=== PATIENT | female | born 1955 | race African-American/Black ===

== ENCOUNTER 2019-11-05 09:12 | Outpatient (CLI) | payer OTHER, SELFPAY ==
[2019-11-05 10:19] LABS: Basophils Percent Auto 0.5 % (0.2-1.2); Eosinophils Absolute Auto 0.2 K/mm3 (0-0.3); Eosinophils Percent Auto 3.7 % (0-4.4); Hemoglobin 11.7 g/dL (12.0-15.0); Immature Granulocyte Absolute 0.01 K/mm3 (0.00-0.031); Immature Granulocyte Percent A 0.2 % (0-0.5); Lymphocytes Absolute Auto 1.65 K/mm3 (0.9-3.2); Lymphocytes Percent Auto 40.5 % (18.3-44.2); Mean Corpuscular HGB Conc 30.8 g/dl (32-36); Mean Corpuscular Hemoglobin 24.5 pg (26-34); Mean Corpuscular Volume 79.7 fl (80-100); Mean Platelet Volume 10.9 fl (7.4-10.4); Monocytes Absolute Auto 0.2 K/mm3 (0.1-0.6); Monocytes Percent Auto 5.7 % (2.6-8.5); Neutrophils Percent Auto 49.4 % (45.5-73.1); Platelet Count Result 227 k/mm3 (150-375); Red Blood Count 4.77 M/mm3 (4.2-5.4); Red Cell Distribution Width 15.1 % (11.5-14.5); White Blood Count 4.1 K/mm3 (4.5-10.0)
[2019-11-05 10:35] LABS: Alanine Aminotransferase 17 U/L (4-35); Albumin Level 3.7 g/dL (3.5-5.1); Alkaline Phosphatase 79 U/L (38-126); Aspartate Amino Transferase 25 U/L (14-36); Bilirubin,Total 0.3 mg/dL (0.2-1.3); Blood Urea Nitrogen 15 mg/dL (7-17); Calcium 8.9 mg/dL (8.4-10.2); Carbon Dioxide 27 mmol/L (22-30); Chloride 103 mmol/L (98-107); Cholesterol 163 mg/dL (0-200); Estimated Glomerular Filt Rate > 60; Glucose 94 mg/dL (65-105); HDL Direct 39 mg/dL; Potassium 3.4 mmol/L (3.4-5.0); Sodium 141 mmol/L (137-145); Triglycerides 54 mg/dL (<150)
[2019-11-05 10:46] LABS: LDL Cholesterol Direct 99 mg/dL
[2019-11-05 10:52] LABS: Microalbumin Urine Random 10.8 mg/L (0-16.7)
[2019-11-05 10:54] LABS: Creatinine Urine 101.5 mg/dL; MALB Creatinine Ratio 10.6 mg/g (0-30)
[2019-11-05 11:10] LABS: Vitamin D 25 Hydroxy 25.2 ng/mL
== END 2019-11-05 09:13 | disposition home or self-care (01) ==
PROVIDERS: PCP Internal Medicine; Visit Provider Internal Medicine
DX: E55.9 Vitamin D deficiency, unspecified (principal); Z76.89 Persons encountering health services in other specified circumstances; Z13.6 Encounter for screening for cardiovascular disorders
CPT/HCPCS: 36415; 80053; 80061; 82043; 82306; 85025

== ENCOUNTER 2019-11-16 13:06 | Outpatient (CLI) | payer OTHER, SELFPAY ==
--- NOTE | ~2019-11-16 | MM_ITS ---
EXAMINATION: MM screening yarely BI w elan HISTORY: Screening mammogram TECHNIQUE: Craniocaudal and mediolateral oblique 3-D tomosynthesis images were obtained and synthetic 2-D images were generated. CAD analysis was submitted and interpreted. COMPARISON: No prior mammogram is available for comparison at this institution. BREAST PARENCHYMAL COMPOSITION: There are scattered areas of fibroglandular density. FINDINGS: 9 mm circumscribed opacity near the lateral subareolar area of the right breast (MLO Tomosy nthesis image , cc Tomosynthesis image ) diagnostic right mammogram and right breast ultras ound examination are recommended. Otherwise no suspicious mass, architectural distortion, malignant calcification, skin thickening or r etraction of either breast is evident.. IMPRESSION: 1. 9 mm lateral subareolar right breast circumscribed opacity 2. Diagnostic right mammogram and right breast ultrasound examination are recommended. Reviewed, dictated and finalized at location A. [employer] IMPRESSION: 1. 9 mm lateral subareolar right breast circumscribed opacity 2. Diagnostic right mammogram and right breast ultrasound examination are recom mended.
--- NOTE | ~2019-11-16 | DEXA_ITS ---
Bone Density Report Name: Leelee Hidalgo Age: 64 Sex: Female Ethnicity: Black Date of : 1955 Indication: postmenopausal; Referring Provider: EN BETTENCOURT Study: Bone densitometry was performed. Exam Date: November 16, 2019 Accession number: [id number] Bone Density: Region BMD T-score Z-score Classification AP Spine (L1, L2, L3) 0.891 -1.2 -0.1 Osteopenia Femoral Neck (Left) 0.681 -1.5 -0.6 Osteopenia Total Hip (Left) 0.883 -0.5 0.1 Normal Total Hip Bilateral Avg 0.875 -0.6 0.1 Normal Femoral Neck (Right) 0.662 -1.7 -0.7 Osteopenia Total Hip (Right) 0.865 -0.6 0.0 Normal World Health Organization criteria for BMD impression classify patients as: Normal (T-score at or above -1.0), Osteopenia (T-score between -1.0 and -2.5), or Osteoporosis (T-score at or below -2.5). 10-year Fracture Risk(1): Major Osteoporotic Fracture 3.9% Hip Fracture 0.5% Reported Risk Factors: [place] (Black), Neck BMD=0.662, BMI=35.3 (1) FRAX(R) Version 3.08. Fracture probability calculated for an untreated patient. Fracture probability may be lower if the patient has received treatment. Clinical Information Provided by Patient: Patient maximum height was 61 Menopause Age: 44 No regular weight bearing exercise Onset of menses at age 12 Number of children 5 Impression: The patient has low bone mass, based on the Right Femoral Neck T-score. The patient has an estimated ten-year risk of hip fracture of 0.5% and an estimated ten-year risk of major fracture of 3.9%, based on the WHO FRAX algorithm. Discussion: BONE DENSITY IS LOW AT ONE OR MORE SKELETAL SITES. This patient's lowest T-score is low at one or more skeletal sites. It meets the World Health Organization's (WHO) criteria for ?low bone mass? (T-score between -1.0 and -2.5). The patient's 10-year risk of fracture as calculated by FRAX is less than the threshold where pharmacological therapy is recommended by the National Osteoporosis Foundation (NOF). However, all treatment decisions require clinical judgment and consideration of individual patient factors, including patient preferences, comorbidities, previous drug use, risk factors not captured in the FRAX model (e.g., frailty, falls, vitamin D deficiency, increased bone turnover, interval significant decline in bone density) and possible under or overestimation of fracture risk by FRAX. The patient should follow a healthful lifestyle (good nutrition with adequate calcium and vitamin D, and appropriate weight-bearing exercise). Follow-Up: Consider repeating this study in 2 to 3 years to reassess this patient's status, or sooner if there is some new clinical indication. Reported by: AMINA on 11/16/2019 1:36:00 PM. Reviewed, dictated and finalized at location A.
== END 2019-11-16 13:07 | disposition home or self-care (01) ==
LOC: ANHIMG 13:07
PROVIDERS: PCP Internal Medicine; Visit Provider Internal Medicine
DX: Z12.31 Encounter for screening mammogram for malignant neoplasm of breast (principal); Z78.0 Asymptomatic menopausal state; R92.8 Other abnormal and inconclusive findings on diagnostic imaging of breast; M85.88 Other specified disorders of bone density and structure, other site; M85.852 Other specified disorders of bone density and structure, left thigh; M85.851 Other specified disorders of bone density and structure, right thigh
CPT/HCPCS: 77063; 77067; 77080

== ENCOUNTER 2019-12-15 11:10 | Outpatient (CLI) | payer OTHER, SELFPAY ==
--- NOTE | ~2019-12-15 | MMUS_ITS ---
EXAMINATION: MM diagnostic mammo unilat RT, US breast RT limited HISTORY: Subareolar right breast mass on screening mammogram TECHNIQUE: Additional 3-D tomosynthesis images of the right breast were performed and synthetic 2-D i mages were generated. CAD analysis was submitted and interpreted. High resolution limited right breas t ultrasound was performed. COMPARISON: 11/16/2019 FINDINGS: MAMMOGRAPHIC FINDINGS: There is an approximately 2.4 x 0.7 cm oval, low density, circumscribed mass in the subareolar aspect of the slightly outer breast at the 9:00 location. No associated architectural distortion or suspici ous calcification are identified. ULTRASOUND: There is a 2.4 x 0.4 cm oval, circumscribed, parallel, anechoic mass in the subareolar aspect of the slightly outer right breast at the 9:00 location with posterior enhancement and no internal vasculari ty. No suspicious mass is identified. IMPRESSION: 1. Likely dilated ducts or small simple fluid collection of the subareolar aspect of the right breast . 2. Recommend 6 month follow-up right diagnostic mammogram and possible ultrasound. BI-RADS category 3, probably benign findings. Reviewed, dictated and finalized at location A. IMPRESSION: 1. Likely dilated ducts or small simple fluid collection of the subareolar aspe ct of the right breast. 2. Recommend 6 month follow-up right diagnostic mammogram and possible ultrasou nd. BI-RADS category 3, probably benign findings.
== END 2019-12-15 11:11 | disposition home or self-care (01) ==
PROVIDERS: PCP Internal Medicine; Visit Provider Internal Medicine
DX: N63.0 Unspecified lump in unspecified breast (principal); R92.8 Other abnormal and inconclusive findings on diagnostic imaging of breast
CPT/HCPCS: 76642; 77065

== ENCOUNTER 2020-03-19 12:43 | Emergency (ER) | payer OTHER, SELFPAY ==
[2020-03-19 12:53] VITALS: BP 127/91; PULSE 67; RESP 18; TEMP 36.6; O2SAT 100
--- NOTE | 2020-03-19 13:56 | ED.EAR ---
HPI - Ear Problem General Chief complaint: Ear Stated complaint: Ear pain Time Seen by Provider: 03/19/20 13:31 Source: patient and RN notes reviewed Mode of arrival: ambulatory Limitations: no limitations History of Present Illness HPI Narrative: Patient presents today complaining of left ear clogging with decreased hearing x1 month. Reports some mild pain. Denies drainage. Reports the right ear is started to become clogged recently as well. She has tried no medication for symptoms prior to arrival. MD Complaint: decreased hearing Related Data Home Medications Medication Instructions Recorded Confirmed No Home Medications 03/19/20 03/19/20 Allergies Allergy/AdvReac Type Severity Reaction Status Date / Time No Known Allergies Allergy Mild Verified 03/19/20 12:47 Review of Systems Review of Systems: Narrative: CONSTITUTIONAL: Denies body aches, fever, chills, or sweats. EYES: Denies visual changes, redness, or discharge. ENT: Denies rhinorrhea, congestion, sore throat.+ Left ear pain and decreased hearing. CARDIOVASCULAR: Denies chest pain, palpitations, or edema. RESPIRATORY: Denies cough or dyspnea. GASTROINTESTINAL: Denies abdominal pain, nausea, vomiting, or diarrhea. GENITOURINARY: Denies dysuria or hematuria. SKIN: Denies rash, itching, or wounds. MUSCULOSKELETAL: Denies back pain, joint pain, or myalgia. NEUROLOGIC: Denies headache, numbness, tingling, or weakness. PSYCH: Denies depression or anxiety. [facility] Family History Family History (Updated 10/31/19 @ 11:06 by Maria E Stacy [facility]) Mother Drowning Father Cerebrovascular accident Social History Social History (Updated 10/31/19 @ 11:06 by Maria E Stacy [facility]) Smoking status: Never smoker Alcohol intake: never Gender identity (if verbalized by the patient): Female Comments At time of signature, I have reviewed and agree with nursing past medical, surgical, social and family history unless otherwise noted. Please see nursing chart for further information. There is no relevant family history pertinent to the presenting complaint Exam Narrative: Exam Narrative: GENERAL: Well-appearing, well-nourished, and in no acute distress. HEAD: Normocephalic, atraumatic. EYES: EOMI. No redness or drainage. Conjunctivae normal. ENT: Mucous membranes pink and moist. Nares clear. No rhinorrhea. Bilateral cerumen impactions. Please see procedure note. Throat normal. Uvula midline. NECK: Normal AROM. CHEST: No respiratory distress. EXTREMITIES: Normal range of motion. No edema. SKIN: Warm, dry, no rash. Capillary refill normal. Normal skin turgor. NEURO: No focal deficits. Alert and oriented x3. Gait steady. PSYCH: Normal affect. No signs of depression or anxiety. Course Vital Signs Vital signs: Vital Signs Temperature 97.9 F 03/19/20 12:53 Pulse Rate 67 03/19/20 12:53 Respiratory Rate 18 03/19/20 12:53 Blood Pressure 127/91 H 03/19/20 12:53 Pulse Oximetry 100 03/19/20 12:53 Temperature 97.9 F 03/19/20 12:53 Pulse Rate 67 03/19/20 12:53 Respiratory Rate 18 03/19/20 12:53 Blood Pressure 127/91 H 03/19/20 12:53 Pulse Oximetry 100 03/19/20 12:53 Reviewed. Pt has been instructed to follow up with her PCP regarding her elevated blood pressure today. Procedures Ear Wax Removal Both Ears: Ear Wax Removal Date: 03/19/20 Ear Wax Removal Time: 13:30 Cerumenolytic Used: other (Hydrogen peroxide) Results: Re-examined: some cerumen remains TM Examination: TM(s) intact, normal appearance Ear Canal Exam: atraumatic Patient Tolerated Procedure: well Complications: no problems Technique: ear canal irrigated and ear canal curetted Additional Comments: TMs bilaterally are normal. Medical Decision Making Differential Diagnosis Differential Diagnosis: Otitis media, otitis externa, ruptured TM, serous otitis, eustachian tu
== END 2020-03-19 14:02 | disposition home or self-care (01) ==
PROVIDERS: Emergency Provider Nurse Practitioner; PCP Internal Medicine
DX: H61.23 Impacted cerumen, bilateral (principal)
CPT/HCPCS: 69210; 99212; A9270; G0463

== ENCOUNTER 2020-05-24 10:15 | Outpatient (CLI) | payer OTHER, SELFPAY ==
[2020-05-24 10:53] LABS: Basophils Percent Auto 0.4 % (0.2-1.2); Eosinophils Absolute Auto 0.1 K/mm3 (0-0.3); Eosinophils Percent Auto 2.6 % (0-4.4); Hematocrit 37.6 % (37.0-47.0); Immature Granulocyte Absolute 0.01 K/mm3 (0.00-0.031); Immature Granulocyte Percent A 0.2 % (0-0.5); Lymphocytes Percent Auto 28.7 % (18.3-44.2); Mean Corpuscular HGB Conc 31.9 g/dl (32-36); Mean Corpuscular Hemoglobin 25.1 pg (26-34); Mean Corpuscular Volume 78.7 fl (80-100); Mean Platelet Volume 10.3 fl (7.4-10.4); Monocytes Absolute Auto 0.3 K/mm3 (0.1-0.6); Monocytes Percent Auto 6.8 % (2.6-8.5); Neutrophils Absolute Auto 2.8 K/mm3 (1.3-6.7); Neutrophils Percent Auto 61.3 % (45.5-73.1); Platelet Count Result 212 k/mm3 (150-375); Red Blood Count 4.78 M/mm3 (4.2-5.4); White Blood Count 4.5 K/mm3 (4.5-10.0)
[2020-05-24 11:54] LABS: Iron 95 ug/dL (37-170)
[2020-05-24 12:35] LABS: Percent Iron Saturation 32 % (20-50); Vitamin D 25 Hydroxy 30.4 ng/mL
== END 2020-05-24 10:16 | disposition home or self-care (01) ==
PROVIDERS: PCP Internal Medicine; Visit Provider Internal Medicine
DX: D50.9 Iron deficiency anemia, unspecified (principal); E55.9 Vitamin D deficiency, unspecified
CPT/HCPCS: 36415; 82306; 82728; 83540; 83550; 85025

== ENCOUNTER 2020-08-24 09:09 | Emergency (ER) | payer OTHER, SELFPAY ==
[2020-08-24 09:21] VITALS: BP 113/65; PULSE 81; RESP 16; TEMP 37.5; O2SAT 97
--- NOTE | 2020-08-24 09:43 | ED.FEMALEGU ---
HPI - Female Genitourinary General Chief complaint: Urogenital-Female Stated complaint: Weakness, Abdominal Pain Time Seen by Provider: 08/24/20 09:25 Source: patient and RN notes reviewed Mode of arrival: ambulatory Limitations: no limitations History of Present Illness HPI Narrative: Patient presents today complaining of a 3-day history of urinary frequency with weakness and epigastric pain that started yesterday. She also reports some sweats and chills last night. She took some Tylenol last night, which did provide some relief. Denies dysuria, hematuria, back or flank pain, nausea, vomiting, diarrhea, or known fever. Denies any recent antibiotic use. No blood or mucus in the stool. Normal bowel movement yesterday. Patient states she occasionally has heartburn for which she takes Tums, but has not tried any Tums for this current epigastric complaint. Related Data Allergies Allergy/AdvReac Type Severity Reaction Status Date / Time No Known Allergies Allergy Mild Verified 08/24/20 09:34 Review of Systems Review of Systems: Narrative: CONSTITUTIONAL: Denies body aches, fever.+ Sweats and chills EYES: Denies visual changes, redness, or discharge. ENT: Denies rhinorrhea, congestion, sore throat, or otalgia. CARDIOVASCULAR: Denies chest pain, palpitations, or edema. RESPIRATORY: Denies cough or dyspnea. GASTROINTESTINAL: Denies nausea, vomiting, or diarrhea. + Epigastric abdominal pain GENITOURINARY: Denies dysuria or hematuria.+ Urinary frequency SKIN: Denies rash, itching, or wounds. MUSCULOSKELETAL: Denies back pain, joint pain, or myalgia. NEUROLOGIC: Denies headache, numbness, tingling. + Weakness PSYCH: Denies depression or anxiety. [facility] Family History Family History (Updated 10/31/19 @ 11:06 by Mari aE Stacy CMA) Mother Drowning Father Cerebrovascular accident Social History Social History (Updated 10/31/19 @ 11:06 by Maria E Stacy CMA) Smoking status: Never smoker Alcohol intake: never Gender identity (if verbalized by the patient): Female Comments At time of signature, I have reviewed and agree with nursing past medical, surgical, social and family history unless otherwise noted. Please see nursing chart for further information. There is no relevant family history pertinent to the presenting complaint Exam Narrative: Exam Narrative: GENERAL: Well-appearing, well-nourished, and in no acute distress. HEAD: Normocephalic, atraumatic. EYES: EOMI. No redness or drainage. Conjunctivae normal. ENT: Mucous membranes pink and moist. NECK: Normal AROM. CHEST: No respiratory distress. Clear to auscultation. HEART: Regular rate and rhythm. No murmur appreciated. Normal peripheral pulses. ABDOMEN: Soft, nondistended, normal active bowel sounds. Mild suprapubic tenderness. -CVAT MUSCULOSKELETAL: No bony tenderness. EXTREMITIES: Normal range of motion. No edema. SKIN: Warm, dry, no rash. Capillary refill normal. Normal skin turgor. NEURO: No focal deficits. Alert and oriented x3. Gait steady. PSYCH: Normal affect. No signs of depression or anxiety. Course Vital Signs Vital signs: Vital Signs Temperature 99.5 F 08/24/20 09:21 Pulse Rate 81 08/24/20 09:21 Respiratory Rate 16 08/24/20 09:21 Blood Pressure 113/65 08/24/20 09:21 Pulse Oximetry 97 08/24/20 09:21 Temperature 99.5 F 08/24/20 09:21 Pulse Rate 81 08/24/20 09:21 Respiratory Rate 16 08/24/20 09:21 Blood Pressure 113/65 08/24/20 09:21 Pulse Oximetry 97 08/24/20 09:21 Reviewed MDM - Female Genitourinary Differential Diagnosis Differential diagnosis: Likely urinary tract infection and other (Gastritis, colitis, gastroenteritis, pancreatitis, pyelonephritis, viral syndrome) Medical Records Medical records narrative: Epigastric discomfort unlikely related to UTI. Instructed to try Tums as she has before for heartburn symptoms. As she is not experiencing any nausea, vomit
== END 2020-08-24 09:53 | disposition home or self-care (01) ==
PROVIDERS: Emergency Provider Nurse Practitioner; PCP Internal Medicine
DX: N30.01 Acute cystitis with hematuria (principal)
CPT/HCPCS: 81003; 87077; 87086; 87088; 87186; 99213; G0463

== ENCOUNTER 2020-09-01 01:41 | Outpatient (CLI) | payer OTHER, SELFPAY ==
[2020-09-01 18:32] LABS: SARS-CoV-2 RNA PCR Positive
== END 2020-09-01 01:42 | disposition home or self-care (01) ==
LOC: ANHCOVIDDT 01:41
PROVIDERS: PCP Internal Medicine; Visit Provider Internal Medicine Gastroenterology
DX: Z01.812 Encounter for preprocedural laboratory examination (principal); U07.1 COVID-19
CPT/HCPCS: 87635; C9803; U0003

== ENCOUNTER 2021-02-11 11:58 | Outpatient (CLI) | payer OTHER, SELFPAY ==
--- NOTE | ~2021-02-11 | MM_ITS ---
EXAMINATION: MM screening yarely BI w elan HISTORY: Screening mammogram, family history of breast cancer in her sister. TECHNIQUE: Craniocaudal and mediolateral oblique 3-D tomosynthesis images were obtained and synthetic 2-D images were generated. CAD analysis was submitted and interpreted. COMPARISON: 12/15/2019, 11/16/2019 BREAST PARENCHYMAL COMPOSITION: There are scattered areas of fibroglandular density. FINDINGS: The previously described subareolar right breast mass is no longer evident. There is no josse dence of suspicious mass, calcification, or architectural distortion to suggest malignancy in either breast. There has been no suspicious interval change. IMPRESSION: 1. No mammographic evidence of malignancy. 2. Recommend routine screening mammography in one year. BI-RADS Category 1: Negative Reviewed, dictated and finalized at location A.
== END 2021-02-11 11:59 | disposition home or self-care (01) ==
PROVIDERS: PCP Internal Medicine; Visit Provider Internal Medicine
DX: Z12.31 Encounter for screening mammogram for malignant neoplasm of breast (principal)
CPT/HCPCS: 77063; 77067

== ENCOUNTER 2021-04-03 01:36 | Day surgery (SDC) | payer OTHER, SELFPAY ==
[2020-08-29 10:45] VITALS: BMI 31.1
[2021-03-13 13:45] VITALS: BMI 29.0
[2021-04-03 07:43] VITALS: BP 113/72; PULSE 60; RESP 16; TEMP 35.5; O2SAT 100
[2021-04-03] MEDS: LACTATED RINGERS 1,000 ML 150 ML IV CONT (07:47)
--- NOTE | 2021-04-03 08:25 | WPDANESEPPF ---
Anes - Initial Pre Proc Eval Procedure: Operation Date: 04/03/21 08:30 Proposed Procedures p Screening Colonoscopy - Kaden Patel MD Date/Time: 04/03/21 08:25 Surgeon: Kaden Patel MD Pre Op Diagnosis: Neoplasm Screening Patient Data Age: 65 Gender: F Height: 1.65 m Weight: 77.3 kg Last Vital Signs Temp 96 F L 04/03/21 07:43 Pulse 60 04/03/21 07:43 Resp 16 04/03/21 07:43 BP 113/72 04/03/21 07:43 Pulse Ox 100 04/03/21 07:43 Allergies Allergy/AdvReac Type Severity Reaction Status Date / Time No Known Allergies Allergy Mild Verified 04/03/21 07:42 Home Medications Medication Instructions Recorded Confirmed Type cyclobenzaprine 5 mg tablet 5 mg PO TID PRN #20 tablet 01/21/21 04/03/21 Rx tramadol 50 mg tablet 50 mg PO Q6H PRN #30 tablet 02/08/21 04/03/21 Rx Patient hx anesthesia problems: none Family hx anesthesia problems: none [facility] Past Medical History Medical History (Updated 04/03/21 @ 08:24 by Mack Sparks MD) Obesity (BMI 30-39.9) Family History Family History (Updated 10/31/19 @ 11:06 by Maria E Stacy CMA) Mother Drowning Father Cerebrovascular accident Social History Social History Smoking status: Never smoker Alcohol intake: former Substance use: never Substance use type: does not use Living arrangements: with family Gender identity (if verbalized by the patient): Female Spiritual care concerns: No Anes - Eval Final PreProcedure Day of Procedure 04/03/21 08:25 Patient weight: obese Heart: regular rate and rhythm Lungs: clear to auscultation Airway: Mallampati scale class II Neurological: alert and oriented Last oral intake: >/= 8 hours ASA classification: II Emergent: no Anesthetic plan: proceed Anesthesia type and monitoring: general GIVS and standard monitoring Informed Consent: The patient's anesthetic plan and its attendant risks and benefits were discussed with the patient/family/POA. Questions were solicited and answers provided to the satisfaction of the patient/family/POA.
--- NOTE | 2021-04-03 08:26 | PM.HPGS ---
History of Present Illness History of Present Illness Consent: Risks, benefits, and alternatives have been discussed and questions answered. Patient agrees to proceed with procedure. Chief complaint: Neoplasm Screening Narrative: Leelee Hidalgo is a 65 year old female here for first screening colonoscopy Review of Systems Constitutional: Constitutional: Denies headache(s) and Denies weakness Eyes: Eyes: Denies blurry vision ENT: Reports Normal hearing present, Denies headache(s) and Denies neck pain Cardiovascular: Cardiovascular: Denies chest pain and Denies dyspnea Respiratory: Respiratory: Denies dyspnea Gastrointestinal: Gastrointestinal: Reports no additional gastrointestinal complaints Genitourinary: Genitourinary: Denies dysuria Musculoskeletal: Musculoskeletal: Denies neck pain Integumentary/Breasts: Skin/Breast: Denies dry skin Neurologic: Reports Normal hearing present, Denies headache(s) and Denies weakness Psychiatric: Psychiatric: Denies anxiety Endocrine: Endocrine: Denies change in body appearance Hematologic/Lymphatic: Hematologic/Lymphatic: Denies easy bleeding Allergic/Immunologic: Allergic/Immunologic: Denies urticaria PMF Past Medical History Medical History (Updated 04/03/21 @ 08:24 by Mack Sparks MD) Obesity (BMI 30-39.9) Family History Family History (Updated 10/31/19 @ 11:06 by Maria E Stacy CMA) Mother Drowning Father Cerebrovascular accident Social History Social History Smoking status: Never smoker Alcohol intake: former Substance use: never Substance use type: does not use Living arrangements: with family Gender identity (if verbalized by the patient): Female Spiritual care concerns: No Meds Home Medications and Allergies Home Medications Medication Instructions Recorded Confirmed Type cyclobenzaprine 5 mg tablet 5 mg PO TID PRN #20 tablet 01/21/21 04/03/21 Rx tramadol 50 mg tablet 50 mg PO Q6H PRN #30 tablet 02/08/21 04/03/21 Rx Allergies Allergy/AdvReac Type Severity Reaction Status Date / Time No Known Allergies Allergy Mild Verified 04/03/21 07:42 Vital Signs Vital Signs - 24 hr 04/03/21 07:43 Temperature 96 F L Pulse Rate 60 Respiratory Rate 16 Blood Pressure 113/72 Pulse Oximetry 100 Exam Const: General: comfortable and no acute distress HENMT: General nose exam: Normal nares present Eyes: General: appearance normal, both eyes and all related structures Neck: Neck: no JVD Resp: Auscultation: clear to auscultation bilaterally Cardio: Rate: regular rate Rhythm: regular rhythm GI: Inspection: non-distended GI Palp: Yes Soft to palpation Skin: General skin exam: normal color Neuro: General: gait normal Speech: normal speech Extrem: General: normal to inspection Psych: Mental Status: mental status grossly normal Assessment and Plan Assessment and plan (1) Encounter for screening colonoscopy: Code(s): Z12.11 - Encounter for screening for malignant neoplasm of colon Status: Acute Assessment and Plan: colonoscopy
[2021-04-03 08:58] VITALS: BP 116/74; PULSE 74; RESP 23; O2SAT 100
[2021-04-03 09:08] VITALS: BP 108/69; PULSE 70; RESP 22; O2SAT 100
[2021-04-03 09:18] VITALS: BP 124/66; PULSE 54; RESP 20; O2SAT 100
== END 2021-04-03 09:31 | disposition home or self-care (01) ==
PROVIDERS: PCP Internal Medicine; Visit Provider Internal Medicine Gastroenterology
PROC: 0DJD8ZZ Inspection of Lower Intestinal Tract, Via Natural or Artificial Opening Endoscopic (ICD-10-PCS; CPT 45378; principal; 2021-04-03 08:30)
DX: Z12.11 Encounter for screening for malignant neoplasm of colon (principal); D12.3 Benign neoplasm of transverse colon; D12.5 Benign neoplasm of sigmoid colon; K57.30 Diverticulosis of large intestine without perforation or abscess without bleeding; K64.8 Other hemorrhoids; E66.9 Obesity, unspecified; Z68.28 Body mass index [BMI] 28.0-28.9, adult
CPT/HCPCS: 45385; 88305; J2704; J7120

== ENCOUNTER 2021-05-23 09:47 | Outpatient (CLI) | payer OTHER, SELFPAY ==
[2021-05-28 17:59] LABS: Hematocrit 37.2 % (35.0-45.0); Hemoglobin 11.6 g/dL (11.7-15.5); MCH 24.9 pg (27.0-33.0); MCV 79.8 fL (80.0-100.0); RDW 14.5 % (11.0-15.0); Red Blood Cell Count 4.66 Mill/uL (3.80-5.10)
== END 2021-05-23 09:48 | disposition home or self-care (01) ==
LOC: ANHLAB 09:49
PROVIDERS: PCP Internal Medicine; Visit Provider Internal Medicine
DX: D56.3 Thalassemia minor (principal)
CPT/HCPCS: 36415; 83021

== ENCOUNTER 2021-05-27 09:32 | Outpatient (CLI) | payer OTHER, SELFPAY ==
[2021-05-27 10:36] LABS: Basophils Percent Auto 0.7 % (0.2-1.2); Eosinophils Absolute Auto 0.1 K/mm3 (0-0.3); Eosinophils Percent Auto 3.1 % (0-4.4); Hematocrit 41.5 % (37.0-47.0); Hemoglobin 12.7 g/dL (12.0-15.0); Immature Granulocyte Absolute 0.01 K/mm3 (0.00-0.031); Immature Granulocyte Percent A 0.2 % (0-0.5); Lymphocytes Percent Auto 37.4 % (18.3-44.2); Mean Corpuscular HGB Conc 30.6 g/dl (32-36); Mean Corpuscular Hemoglobin 24.6 pg (26-34); Mean Corpuscular Volume 80.3 fl (80-100); Mean Platelet Volume 10.5 fl (7.4-10.4); Monocytes Absolute Auto 0.4 K/mm3 (0.1-0.6); Monocytes Percent Auto 7.7 % (2.6-8.5); Neutrophils Absolute Auto 2.3 K/mm3 (1.3-6.7); Neutrophils Percent Auto 50.9 % (45.5-73.1); Platelet Count Result 241 k/mm3 (150-375); Red Blood Count 5.17 M/mm3 (4.2-5.4); Red Cell Distribution Width 14.6 % (11.5-14.5); White Blood Count 4.6 K/mm3 (4.5-10.0)
[2021-05-27 10:47] LABS: Alanine Aminotransferase 18 U/L (4-35); Albumin Level 4.1 g/dL (3.5-5.1); Alkaline Phosphatase 80 U/L (38-126); Anion Gap 8 mmol/L (8-16); Aspartate Amino Transferase 26 U/L (14-36); Bilirubin,Total 0.3 mg/dL (0.2-1.3); Blood Urea Nitrogen 14 mg/dL (7-17); Calcium 9.4 mg/dL (8.4-10.2); Carbon Dioxide 29 mmol/L (22-30); Chloride 101 mmol/L (98-107); Cholesterol 196 mg/dL (0-200); Estimated Glomerular Filt Rate > 60; Glucose 99 mg/dL (65-110); HDL Direct 52 mg/dL; Potassium 3.7 mmol/L (3.4-5.0); Sodium 138 mmol/L (137-145); Triglycerides 104 mg/dL (<150)
[2021-05-27 10:58] LABS: LDL Cholesterol Direct 96 mg/dL
[2021-05-27 11:04] LABS: Vitamin D 25 Hydroxy 27.5 ng/mL
[2021-05-27 11:12] LABS: Creatinine Urine 60.7 mg/dL
[2021-05-27 11:28] LABS: MALB Creatinine Ratio 9.9 mg/g (0-30); Microalbumin Urine Random < 6.0 mg/L (0-16.7)
== END 2021-05-27 09:33 | disposition home or self-care (01) ==
PROVIDERS: PCP Internal Medicine; Visit Provider Internal Medicine
DX: E55.9 Vitamin D deficiency, unspecified (principal); E78.2 Mixed hyperlipidemia
CPT/HCPCS: 36415; 80053; 80061; 82043; 82306; 84443; 85025

== ENCOUNTER → 2021-11-29 02:33 | Outpatient (CLI) | payer OTHER, SELFPAY ==
[2021-11-29 11:55] LABS: Influenza A QL RT-PCR Negative (Negative); Influenza B QL RT-PCR Negative (Negative); SARS-CoV-2 RNA PCR Negative
== END ==
PROVIDERS: PCP Internal Medicine; Visit Provider Internal Medicine
DX: R68.89 Other general symptoms and signs (principal); Z20.822 Contact with and (suspected) exposure to COVID-19
CPT/HCPCS: 87502; C9803; U0003; U0005

== ENCOUNTER 2022-06-11 09:45 | Outpatient (CLI) | payer OTHER, SELFPAY ==
[2022-06-11 10:44] LABS: Cholesterol 191 mg/dL (0-200); HDL Direct 41 mg/dL; Triglycerides 121 mg/dL (<150)
[2022-06-11 10:48] LABS: Alanine Aminotransferase 11 U/L (6-35); Albumin Level 4.1 g/dL (3.5-5.1); Alkaline Phosphatase 72 U/L (38-126); Anion Gap 3 mmol/L (8-16); Aspartate Amino Transferase 27 U/L (14-36); Bilirubin,Total 0.2 mg/dL (0.2-1.3); Blood Urea Nitrogen 17 mg/dL (7-17); Calcium 9.1 mg/dL (8.4-10.2); Carbon Dioxide 26 mmol/L (22-30); Chloride 114 mmol/L (98-107); Estimated Glomerular Filt Rate > 60; Glucose 99 mg/dL (65-110); Potassium 4.1 mmol/L (3.4-5.0); Sodium 143 mmol/L (137-145)
[2022-06-11 10:55] LABS: LDL Cholesterol Direct 103 mg/dL
[2022-06-11 11:14] LABS: Vitamin D 25 Hydroxy 22.1 ng/mL
== END 2022-06-11 09:46 | disposition home or self-care (01) ==
PROVIDERS: PCP Internal Medicine; Visit Provider Internal Medicine
DX: E55.9 Vitamin D deficiency, unspecified (principal); E78.2 Mixed hyperlipidemia
CPT/HCPCS: 36415; 80053; 80061; 82306

== ENCOUNTER 2022-07-01 14:10 | Outpatient (CLI) | payer OTHER, SELFPAY ==
--- NOTE | ~2022-07-01 | MM_ITS ---
EXAMINATION: MM screening yarely BI w elan HISTORY: Screening mammogram TECHNIQUE: Craniocaudal and mediolateral oblique 3-D tomosynthesis images were obtained and synthetic 2-D images were generated. CAD analysis was submitted and interpreted. COMPARISON: 02/11/2021 bilateral screening mammogram 12/15/2019 diagnostic right mammogram and limited right breast ultrasound 11/16/2019 bilateral screening mammogram BREAST PARENCHYMAL COMPOSITION: There are scattered areas of fibroglandular density. FINDINGS: Stable mild fibroglandular asymmetry. There is no evidence of suspicious mass, calcificatio n, or architectural distortion to suggest malignancy in either breast. There has been no suspicious i nterval change. IMPRESSION: 1. No mammographic evidence of malignancy. 2. Recommend routine screening mammography in one year. BI-RADS Category 1: Negative Reviewed, dictated and finalized at location A.
== END 2022-07-01 14:11 | disposition home or self-care (01) ==
PROVIDERS: PCP Internal Medicine; Visit Provider Nurse Practitioner
DX: Z12.31 Encounter for screening mammogram for malignant neoplasm of breast (principal)
CPT/HCPCS: 77063; 77067

== ENCOUNTER 2022-07-03 12:53 | Outpatient (CLI) | payer OTHER, SELFPAY ==
--- NOTE | ~2022-07-03 | US_ITS ---
EXAMINATION: US pelvic complete w TV DATE: 07/03/2022 14:43 INDICATION: Postmenopausal bleeding Comparison:No prior studies for comparison. TECHNIQUE: Multiple transabdominal and endovaginal sonographic images of the pelvis performed. FINDINGS: The uterus measures 7 x 3.3 x 4.7 cm. The endometrial complex measures 10 mm. There is an 8 mm nabothian cysts. The right ovary measures 2 x 1.7 x 1.8 cm and the left ovary is not visualized. There is no free fluid in the pelvis. There are no abnormal masses seen on either side. IMPRESSION: 1. Thickened endomtrial complex. The differential diagnosis includes endometrial hyperplasia, polyp a nd carcinoma. Biopsy is recommended. Reviewed, dictated and finalized at location B. IMPRESSION: 1. Thickened endomtrial complex. The differential diagnosis includes endometria l hyperplasia, polyp and carcinoma. Biopsy is recommended.
== END 2022-07-03 12:54 | disposition home or self-care (01) ==
PROVIDERS: PCP Internal Medicine; Visit Provider Obstetrics & Gynecology
DX: N95.0 Postmenopausal bleeding (principal)
CPT/HCPCS: 76830; 76856

== ENCOUNTER 2022-10-08 01:30 | Day surgery (SDC) | payer OTHER, SELFPAY ==
[2022-09-23 09:19] VITALS: BMI 29.3
--- NOTE | 2022-09-23 09:23 | PC.NURSE ---
PRE-OP INSTRUCTIONS, PLEASE READ CAREFULLY Report to the Outpatient Waiting Room, entrance under the green pavilion located off [facility], at time _0600_ on date _10/08/22_. Planned Procedure Time: _0730_. Time changes happen often and if your time is changed the preop area will call you the afternoon before. - You and your visitor will be asked to self-screen and do not enter if you have any COVID symptoms. - Only one visitor is requested with a max of two and NO children visitors are allowed at this time. - The patient visitor may be requested to leave or wait in car when not with patient due to distancing restrictions. - A mask is required within the hospital. Patients may have clear liquids (water, carbonated beverages, clear teas, apple juice) until 3 hours prior to surgery (0430 AM) with a maximum of 20 ounces. - No food from midnight until time of surgery Take the following medications with a SIP of water the morning of surgery: ___NONE__ Medications to discontinue per ANESTHESIA - _VITAMINS 3 DAYS PRIOR TO SURGERY, Date to take last dose 10/04/22_ Please no make-up, nail slovak, hairspray, perfume, deodorant, or body powder the day of surgery. No jewelry (including any body piercings) or valuables the day of surgery, leave them at home. Please take a shower or bath the night before, or the morning of, surgery with an antibacterial soap. Wear comfortable, loose fitting clothing. - Jewelry must be removed prior to entering the operating room. Rings and piercings that are not removed may be cut off. - The hospital will not accept responsibility for valuables. - Please leave all valuables, including medications, at home the day of surgery. If you are going home after surgery, a licensed equipment driver must drive you home. - NO public transportation without another adult if you receive anesthesia. - We recommend that an adult stay with you for 24 hours following discharge. - We also recommend that you do not drive, make important decision, drink alcoholic beverages, or take any drugs that were not prescribed by your health care provider for at least 24 hours after your discharge time. Follow any additional instructions given to you from your surgeon. If you or anyone in your household have experienced Covid symptoms in the past week, please notify your surgeon or the nurse liaison at the phone number below for possible testing. Telephone instructions given to _PATIENT_and asked if any additional questions and then verbalized understanding. Patient advised to call surgeon office or pre surgery nurse liaison [phone] if any additional questions.
--- NOTE | 2022-10-07 14:10 | P.PNAN_ITS ---
Anes - Initial Pre Proc Eval Procedure: Operation Date: 10/08/22 07:30 Proposed Procedures p Hysteroscopy Dilation and Curettage - Everardo Avendano MD Date/Time: 10/07/22 14:10 Surgeon: Everardo Avendano MD Pre Op Diagnosis: post menop bleed,Endometrial Lesion, Cerv Lesion Patient Data Age: 67 Gender: F Height: 1.65 m Weight: 80 kg Allergies Allergy/AdvReac Type Severity Reaction Status Date / Time No Known Allergies Allergy Mild Verified 10/08/22 06:24 Home Medications Medication Instructions Recorded Confirmed Type cholecalciferol (vitamin D3) 50 50 mcg PO DAILY 09/23/22 10/08/22 History mcg (2,000 unit) chewable tablet multivitamin 1 tablet PO DAILY 09/23/22 10/08/22 History Patient hx anesthesia problems: none Family hx anesthesia problems: none Results Review: All pre-operative results and documents have been reviewed as part of the pre- operative evaluation. PMF Past Medical History Medical History Obesity (BMI 30-39.9) Surgical History Surgical History H/O tubal ligation [place] teeth removed Family History Family History Mother Drowning Father Cerebrovascular accident Sibling Hypertension Breast cancer Social History Social History Smoking status: Never smoker Second hand tobacco smoke exposure: No Alcohol intake: never Substance use: never Substance use type: does not use Living arrangements: with family Additional living arrangements comments: LIVES WITH SPOUSE - SHAHEED Gender identity (if verbalized by the patient): Female Spiritual care concerns: No Anes - Eval Final PreProcedure Day of Procedure 10/07/22 14:10 Patient weight: overweight Heart: regular rate and rhythm Lungs: clear to auscultation Airway: Mallampati scale class II Neurological: alert and oriented Last oral intake: >/= 8 hours ASA classification: II Emergent: no Anesthetic plan: proceed Anesthesia type and monitoring: general GIVS and standard monitoring Results Review: All pre-operative results and documents have been reviewed as part of the pre- operative evaluation. Informed Consent: The patient's anesthetic plan and its attendant risks and benefits were discussed with the patient/family/POA. Questions were solicited and answers provided to the satisfaction of the patient/family/POA.
--- NOTE | 2022-10-08 06:13 | PM.IMHP ---
H&P: HPI History of Present Illness Date/Time: 10/08/22 06:13 Chief Complaint: Postmenopausal bleeding Narrative: She presented with postmenopausal spotting in Jun 2022. On exam there was a cervical polyp appearing area at cervix. She had subsequent pelvic ultrasound which showed thickened endometrial stripe. She had a subsequent endometrial biopsy showed atrophic endometrium. Removal of the polyp at the cervix was attempted at the time but was not able to grasp it, to remove. She was recommended for D and C and hysteroscopy and removal of lesion. Review of Systems Review of Systems: All systems reviewed & are unremarkable except as noted in HPI and below Constitutional: Constitutional: Reports no additional constitutional complaints Eyes: Eyes: Reports no additional eye complaints Cardiovascular: Cardiovascular: Reports no additional cardiovascular complaints Respiratory: Respiratory: Reports no additional respiratory complaints Gastrointestinal: Gastrointestinal: Reports no additional gastrointestinal complaints Genitourinary: Genitourinary: Reports no additional female genitourinary complaints and Reports as per HPI Integumentary/Breasts: Skin/Breast: Reports system reviewed and no additional complaints, except as docu Neurologic: Reports system reviewed and no additional complaints, except as documented Psychiatric: Psychiatric: Reports no additional psychiatric complaints Hematologic/Lymphatic: Hematologic/Lymphatic: Reports no additional hematologic/lymphatic complaints [facility] Past Medical History Medical History Obesity (BMI 30-39.9) Surgical History Surgical History H/O tubal ligation [place] teeth removed Family History Family History Mother Drowning Father Cerebrovascular accident Sibling Hypertension Breast cancer Social History Social History Smoking status: Never smoker Second hand tobacco smoke exposure: No Alcohol intake: never Substance use: never Substance use type: does not use Living arrangements: with family Additional living arrangements comments: LIVES WITH SPOUSE - [place]HE[place] Gender identity (if verbalized by the patient): Female Spiritual care concerns: No Meds Home Medications and Allergies Home Medications Medication Instructions Recorded Confirmed Type cholecalciferol (vitamin D3) 50 50 mcg PO DAILY 09/23/22 09/23/22 History mcg (2,000 unit) chewable tablet multivitamin 1 tablet PO DAILY 09/23/22 09/23/22 History Allergies Allergy/AdvReac Type Severity Reaction Status Date / Time No Known Allergies Allergy Mild Verified 10/08/22 06:24 Exam Const: General: comfortable and no acute distress Orientation/consciousness: oriented to person, oriented to place and oriented to time Eyes: General: appearance normal, both eyes and all related structures Neck: Neck: normal visual inspection Resp: Effort & Inspection: normal respiratory effort Auscultation: clear to auscultation bilaterally Cardio: Rate: regular rate Rhythm: regular rhythm GI: Inspection: normal to inspection GI Palp: No abdominal tenderness and Yes No hepatosplenomegaly present : External Female Exam: normal external appearance Speculum Exam - Vagina: normal appearance of the vagina Speculum Exam - Cervix: Other cervical findings present (polyp at os ) Bimanual exam- vagina & uterus: normal bimanual exam, uterine mobility normal, uterine shape normal and non-tender Bimanual Exam- Adnexa, other: no masses and No adnexal tenderness Skin: General skin exam: normal color Neuro: General: oriented to person, oriented to place and oriented to time Psych: Appearance: grossly normal Assessment and Plan Assessment and plan (1)
[2022-10-08 06:17] VITALS: BP 139/81; PULSE 63; TEMP 36.5; O2SAT 98
[2022-10-08] MEDS: LACTATED RINGERS 1,000 ML 30 ML IV CONT (06:28)
[2022-10-08] MEDS: ACETAMINOPHEN 500 MG TABLET 1000 MG PO (06:30)
--- NOTE | 2022-10-08 07:17 | WPDHPUPDATE1 ---
History and Physical Update Update Date/Time: 10/08/22 07:17 History and Physical has been reviewed, including an updated exam of the patient. There are NO changes in the patient's condition. Risks, benefits, and alternatives have been discussed and questions answered. Patient agrees to proceed with procedure.
[2022-10-08] MEDS: ceFAZolin 2 GM/D5W 50 ML 2 GM/50 ML BAG IVPB (07:30)
[2022-10-08] MEDS: LIDOCAINE HCL 1% PF 30 ML VIAL 10 ML INFILTRATE (07:30)
[2022-10-08 08:05] VITALS: BP 138/86; PULSE 66; RESP 12; O2SAT 98
--- NOTE | 2022-10-08 08:23 | PM.OP ---
Procedure Note - Brief Procedure Note - Brief Date of procedure: 10/08/22 Pre-op diagnosis: post menop bleed,Endometrial Lesion, Cerv Lesion same Post-op diagnosis: Other (Endometrial polyp) Procedure performed: Hysteroscopy with dilation and curretage and removal of endometrial/endocervical lesion. Anesthesia: MAC and local Surgeon: Everardo Avendano MD Estimated blood loss (mL): 5 Drains: No Packing: No Pathology: Yes (endometrial currettings and endometrial/endocervical lesion) Complications: No immediate complications Condition: Stable Disposition: Same day
[2022-10-08 08:35] VITALS: BP 153/78; PULSE 52; RESP 16
--- NOTE | 2022-10-08 21:24 | W.PM.PROC2 ---
Procedure Note - Detailed Date of Procedure 10/08/22 Pre-op Diagnosis post menop bleed,Endometrial Lesion, Cerv Lesion Post-op Diagnosis Other Procedure Performed Hysteroscopy dilation and curretage and removal of endometrial/endocervical lesion Surgeon Everardo Avendano MD Anesthesia MAC and Local Indications Endocervical lesion on exam, thickened endometrial stripe, postmenopausal bleeding. Findings uterus sound to 7 cm, polyp seen at lower inner cervical canal and lower uterine/upper cervical canal removed completely with aveta instrument Description of Procedure after informed consent obtained she was taken to OR and prepped and draped in sterilie fashion. Speculum inserted. Single tooth tenaculum placed on anterior lip of cervix. 10cc of 1% lidocaine plain was injected at cervicovaginal interface and 2,5,8,10 oclock position. Cervix was dilated to 8 de souza dilator. Uterine cavity sound to 7cm. Hysteroscope inserted. Lesions identified. The rest of the cavity atrophic. The Aveta instrument was used to suction the lower cervical and upper cervical polyp. Hemostasis was noted. Currettage with scant tissue obtained. Tenaculum removed. Hemostasis noted. Sponge count correct. Patient tolerated procedure well. Estimated Blood Loss -5.0 Drains No Packing No Pathology Yes (Cervical/lower endometrial polyp, endometrial currettings.) Complications No immediate complications Condition Stable Disposition Same day [facility] Billing Surgery - Charge Forward: Surgery Billing
== END 2022-10-08 08:54 | disposition home or self-care (01) ==
PROVIDERS: PCP Nurse Practitioner; Visit Provider Obstetrics & Gynecology
PROC: 0U5B8ZZ Destruction of Endometrium, Via Natural or Artificial Opening Endoscopic (ICD-10-PCS; CPT 58563; principal; 2022-10-08 07:30)
DX: N95.0 Postmenopausal bleeding (principal); N84.1 Polyp of cervix uteri; N85.8 Other specified noninflammatory disorders of uterus; E66.9 Obesity, unspecified; Z68.29 Body mass index [BMI] 29.0-29.9, adult
CPT/HCPCS: 58558; 88305; A9270; J0690; J2704; J3010; J7030; J7120

== ENCOUNTER 2023-10-15 09:49 | Outpatient (CLI) | payer OTHER, SELFPAY ==
--- NOTE | ~2023-10-15 | MM_ITS ---
EXAMINATION: MM screening yarely BI w elan HISTORY: Screening mammogram, family history of breast cancer in her sister. TECHNIQUE: Craniocaudal and mediolateral oblique 3-D tomosynthesis images were obtained and synthetic 2-D images were generated. CAD analysis was submitted and interpreted. COMPARISON: 07/01/2022, 02/11/2021, 12/15/2019, 11/16/2019 BREAST PARENCHYMAL COMPOSITION: There are scattered areas of fibroglandular density. FINDINGS: No suspicious mass, calcification, or architectural distortion are identified in either stevenson ast to suggest malignancy. There has been no suspicious interval change. IMPRESSION: 1. No mammographic evidence of malignancy. 2. Recommend routine screening mammography in one year. BI-RADS Category 1: Negative Reviewed, dictated and finalized at location [facility]. [facility]
== END 2023-10-15 09:50 | disposition home or self-care (01) ==
PROVIDERS: PCP Nurse Practitioner; Visit Provider Nurse Practitioner
DX: Z12.31 Encounter for screening mammogram for malignant neoplasm of breast (principal)
CPT/HCPCS: 77063; 77067

== ENCOUNTER 2024-08-05 03:02 | Day surgery (SDC) | payer OTHER, SELFPAY ==
[2024-07-25 12:44] VITALS: BMI 29.3
[2024-08-05 09:04] VITALS: BP 151/70; PULSE 72; RESP 20; TEMP 36; O2SAT 100; BMI 27.0
[2024-08-05] MEDS: LACTATED RINGERS 1,000 ML 150 ML IV CONT (09:07)
--- NOTE | 2024-08-05 09:23 | WPDANESEPPF ---
Anes - Initial Pre Proc Eval Procedure: Operation Date: 08/05/24 10:00 Proposed Procedures p Colonoscopy - Kaden Patel MD Date/Time: 08/05/24 09:23 Surgeon: Kaden Patel MD Pre Op Diagnosis: Personal hx. colon polyps Patient Data Age: 69 Gender: F Height: 1.65 m Weight: 73.7 kg Last Vital Signs Temp 36.0 C L 08/05/24 09:04 Pulse 72 08/05/24 09:04 Resp 20 08/05/24 09:04 BP 151/70 H 08/05/24 09:04 Pulse Ox 100 08/05/24 09:04 O2 Del Method Room Air 08/05/24 09:04 Allergies Allergy/AdvReac Type Severity Reaction Status Date / Time No Known Allergies Allergy Mild Verified 08/05/24 09:03 Home Medications Medication Instructions Recorded Confirmed Type cholecalciferol (vitamin D3) 50 50 mcg PO DAILY 09/23/22 08/05/24 History mcg (2,000 unit) chewable tablet multivitamin 1 tablet PO DAILY 09/23/22 08/05/24 History Patient hx anesthesia problems: none Family hx anesthesia problems: none Results Review: All pre-operative results and documents have been reviewed as part of the pre-operative evaluation. [facility] Past Medical History Medical History Obesity (BMI 30-39.9) Surgical History Surgical History H/O dilation and curettage H/O tubal ligation [place] teeth removed Family History Family History Mother Drowning Father Cerebrovascular accident Sibling Hypertension Breast cancer Social History Social History Smoking status: Never smoker Second hand tobacco smoke exposure: No Alcohol intake: never Substance use: never Substance use type: does not use Lack of Transportation: No Lack of Food: Never True Current Housing: I Have Housing Concerned About Future Housing: No Difficulty Paying Gas/Electric Bills: No Difficulty Paying for Meds: No Currently Unemployed: No Education: High School Diploma/GED Difficulty w/ Childcare or Family Care: No Living arrangements: alone Additional living arrangements comments: LIVES WITH SPOUSE - SHAHEED Gender identity (if verbalized by the patient): Female Spiritual care concerns: No Anes - Eval Final PreProcedure Day of Procedure 08/05/24 09:23 Patient weight: normal Heart: regular rate and rhythm Lungs: clear to auscultation Airway: Mallampati scale class II Neurological: alert and oriented Last oral intake: >/= 8 hours ASA classification: II Emergent: no Anesthetic plan: proceed Anesthesia type and monitoring: general GIVS and standard monitoring Results Review: All pre-operative results and documents have been reviewed as part of the pre-operative evaluation. Informed Consent: The patient's anesthetic plan and its attendant risks and benefits were discussed with the patient/family/POA. Questions were solicited and answers provided to the satisfaction of the patient/family/POA.
--- NOTE | 2024-08-05 09:57 | P.HP_ITS ---
History of Present Illness History of Present Illness Consent: Risks, benefits, and alternatives have been discussed and questions answered. Patient agrees to proceed with procedure. Chief complaint: Personal hx. colon polyps Narrative: Leelee Hidalgo is a 69 year old female with colon polyp in 2020 Review of Systems Review of Systems: All systems reviewed & are unremarkable except as noted in HPI and below PMFSH Past Medical History Medical History Obesity (BMI 30-39.9) Surgical History Surgical History H/O dilation and curettage H/O tubal ligation [place] teeth removed Family History Family History Mother Drowning Father Cerebrovascular accident Sibling Hypertension Breast cancer Social History Social History Smoking status: Never smoker Second hand tobacco smoke exposure: No Alcohol intake: never Substance use: never Substance use type: does not use Lack of Transportation: No Lack of Food: Never True Current Housing: I Have Housing Concerned About Future Housing: No Difficulty Paying Gas/Electric Bills: No Difficulty Paying for Meds: No Currently Unemployed: No Education: High School Diploma/GED Difficulty w/ Childcare or Family Care: No Living arrangements: alone Additional living arrangements comments: LIVES WITH SPOUSE - [place]HEED Gender identity (if verbalized by the patient): Female Spiritual care concerns: No Meds Home Medications and Allergies Home Medications Medication Instructions Recorded Confirmed Type cholecalciferol (vitamin D3) 50 50 mcg PO DAILY 09/23/22 08/05/24 History mcg (2,000 unit) chewable tablet multivitamin 1 tablet PO DAILY 09/23/22 08/05/24 History Allergies Allergy/AdvReac Type Severity Reaction Status Date / Time No Known Allergies Allergy Mild Verified 08/05/24 09:03 Vital Signs Vital Signs - 24 hr 08/05/24 09:04 Temperature 96.8 F L Pulse Rate 72 Respiratory Rate 20 Blood Pressure 151/70 H Pulse Oximetry 100 Oxygen Delivery Room Air Exam Const: General: comfortable and no acute distress HENMT: Face/Nose/Sinus: Normal nares present Eyes: General: appearance normal, both eyes and all related structures Neck: Neck: no JVD Resp: Auscultation: clear to auscultation bilaterally Cardio: Rate: regular rate Rhythm: regular rhythm GI: Inspection: non-distended GI Palp: Yes Soft to palpation Skin: General skin exam: normal color Neuro: General: gait normal Speech: normal speech Extrem: General: normal to inspection Psych: Mental Status: mental status grossly normal Assessment and Plan Assessment and plan (1) History of colon polyps: Code(s): Z86.010 - Personal history of colon polyps Status: Acute Assessment and Plan: colonoscopy
[2024-08-05 10:19] VITALS: BP 106/64; PULSE 73; RESP 18; O2SAT 99
[2024-08-05 10:29] VITALS: BP 107/71; PULSE 71; RESP 21; O2SAT 100
[2024-08-05 10:38] VITALS: BP 114/74; PULSE 60; RESP 22; O2SAT 100
== END 2024-08-05 10:55 | disposition home or self-care (01) ==
PROVIDERS: PCP Nurse Practitioner; Visit Provider Internal Medicine Gastroenterology
PROC: 0DJD8ZZ Inspection of Lower Intestinal Tract, Via Natural or Artificial Opening Endoscopic (ICD-10-PCS; CPT 45378; principal; 2024-08-05 10:00)
DX: Z12.11 Encounter for screening for malignant neoplasm of colon (principal); K63.5 Polyp of colon; K64.8 Other hemorrhoids; K57.30 Diverticulosis of large intestine without perforation or abscess without bleeding; Z98.890 Other specified postprocedural states; Z98.51 Tubal ligation status; Z80.3 Family history of malignant neoplasm of breast; Z82.49 Family history of ischemic heart disease and other diseases of the circulatory system
CPT/HCPCS: 45380; 88305; J2003; J2704; J7120